=== PATIENT | male | born 1995 | race Caucasian/White ===

== ENCOUNTER 2017-09-26 14:00 | Outpatient (CLI) | payer OTHER ==
[~2017-09-26 14:00] MED LIST: Lidocaine 4% Topical Sol 50 ML BOT ONE; Sodium Chloride 0.9% 15 ML NEB ONE
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
== END 2017-09-26 14:01 | disposition home or self-care (01) ==
LOC: WCC 14:00
PROVIDERS: ATTEND Family Medicine
DX: T22.211D Burn of second degree of right forearm, subsequent encounter (principal); T21.24XD Burn of second degree of lower back, subsequent encounter
CPT/HCPCS: 97602; 99203; A4218; G0463; J2001

== ENCOUNTER 2018-10-13 23:12 | Emergency (ER) | payer OTHER ==
[2018-10-14] MEDS ORDERED: Lidocaine 1% w/Epinephrine 1:100K 20 ML VIAL ONE (00:11)
[2018-10-14] MEDS ORDERED: Adacel (T-DAP) 0.5 ML SYRINGE ONE (00:37)
--- NOTE | 2018-10-14 07:23 | CT ---
CT HEAD NONCONTRAST: Date: 10/13/18 INDICATION: Head injury, pain. FINDINGS: There is multifocal radiopaque density at the midline frontal scalp with associated soft tissue promi nence. No intracranial hemorrhage, mass effect, or midline shift. Scattered paranasal sinus opacifica tion is present, most pronounced within the sphenoid sinus. IMPRESSION: 1. No acute intracranial hemorrhage or mass effect. 2. Focal, midline frontal scalp abnormality. This could relate to laceration with embedded foreign b odies, or, alternatively, partially calcified cutaneous lesion. Recommend correlation with physical e xam for further assessment. POS: [facility]
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
== END 2018-10-14 03:45 | disposition home or self-care (01) ==
LOC: ERS 23:12
DX: S06.0X0A Concussion without loss of consciousness, initial encounter (principal); S62.326A Displaced fracture of shaft of fifth metacarpal bone, right hand, initial encounter for closed fracture; S01.81XA Laceration without foreign body of other part of head, initial encounter; F17.210 Nicotine dependence, cigarettes, uncomplicated; Y33.XXXA Other specified events, undetermined intent, initial encounter
CPT/HCPCS: 12013; 29125; 70450; 90471; 90715; J2001